=== PATIENT | female | born 1955 | race Caucasian/White ===

== ENCOUNTER 2021-11-23 09:00 | Day surgery (SDCO) | payer MEDICARE ==
[~2021-11-23] VITALS: Ht 162.6 cm; Wt 68.7 kg
[2021-11-23 09:34] LABS: BASOPHIL 0.3 % (0-2); EOSINOPHIL 1.9 % (0-7); HCT 43.3 % (37.0-47.0); HGB 14.5 g/dl (12.5-16.0); LYMPHOCYTE 20.1 % (15-48); MCH 29.5 pg (25.0-31.0); MCHC 33.5 g/dL (32.0-36.0); MONOCYTE 6.1 % (0-12); MPV 9.4 fL (6.0-9.5); NEUTROPHIL 71.3 % (41-80); NRBC 0; PLT 251 K/uL (150-400); RBC 4.92 M/uL (4.20-5.40); RDW 12.6 % (11.5-14.0); WBC 6.2 K/uL (4.0-10.5)
[2021-11-23 09:43] LABS: INR 0.92 (0.9-1.2); PROTHROMBIN TIME 12.1 SECONDS (11.9-13.9); PTT 25.3 SECONDS (24.9-34.6)
[2021-11-23 10:07] LABS: ALBUMIN 3.6 g/dL (3.4-5.0); BILIRUBIN - TOTAL 0.3 mg/dL (0.2-1.0); CREATININE 0.81 mg/dL (0.51-0.95); GLOBULIN (CALCULATION) 3.2 g/dL; POTASSIUM 3.9 mmol/L (3.5-5.1); TOTAL PROTEIN 6.8 g/dL (6.4-8.2)
[2021-11-23] MEDS ORDERED: AMOXICILLIN500 M2 PO (16:45)
[2021-11-23] MEDS ORDERED: AMLODIPINE BES2.5 MG PO (16:46)
[2021-11-23] MEDS ORDERED: CALCITONIN-SAL3.7 ML (16:48)
[2021-11-23] MEDS ORDERED: ASPIRIN EC81 MG PO (16:49)
[2021-11-24 06:57] LABS: BASOPHIL 0.6 % (0-2); EOSINOPHIL 3.4 % (0-7); HCT 42.5 % (37.0-47.0); HGB 14.3 g/dl (12.5-16.0); LYMPHOCYTE 29.1 % (15-48); MCH 29.4 pg (25.0-31.0); MCHC 33.6 g/dL (32.0-36.0); MCV 87.4 fL (78.0-100.0); MONOCYTE 7.9 % (0-12); MPV 9.3 fL (6.0-9.5); NEUTROPHIL 58.8 % (41-80); NRBC 0; PLT 255 K/uL (150-400); RBC 4.86 M/uL (4.20-5.40); RDW 12.7 % (11.5-14.0); WBC 5.3 K/uL (4.0-10.5)
[2021-11-24 07:21] LABS: BUN/CREAT RATIO (CALC) 20.2 RATIO; CREATININE 0.84 mg/dL (0.51-0.95); POTASSIUM 3.3 mmol/L (3.5-5.1)
[2021-11-24] MEDS ORDERED: COLESTIPOL HCL1 GM PO (13:30)
[2021-11-24] MEDS ORDERED: CARAFATE1 GM PO (13:30)
[2021-11-24] MEDS ORDERED: PANTOPRAZOLE SO40 MG PO (13:30)
== END 2021-11-24 15:17 | disposition home or self-care (01) ==
LOC: FER 09:00 → FMS 14:02
PROVIDERS: Emergency Medicine; ADMIT Internal Medicine
DX: R07.89 Other chest pain (principal); K21.9 Gastro-esophageal reflux disease without esophagitis; R06.00 Dyspnea, unspecified; I10 Essential (primary) hypertension; Z82.49 Family history of ischemic heart disease and other diseases of the circulatory system; Z88.1 Allergy status to other antibiotic agents; Z79.82 Long term (current) use of aspirin; Z20.822 Contact with and (suspected) exposure to COVID-19
CPT/HCPCS: 36415; 71045; 80048; 80053; 84484; 85025; 85610; 85730; 93005; C9113; G0378; U0002